=== PATIENT | male | born 1980 | race African-American/Black ===

== ENCOUNTER 2017-02-24 03:00 | Emergency (ER) | payer OTHER ==
[~2017-02-24] VITALS: Ht 172.7 cm; Wt 68.2 kg
[~2017-02-24 03:00] MED LIST: NAPR-576 PO; ROBA750T3 PO
[2017-02-24 03:12] VITALS: BP 120/62; PULSE 91; RESP 16; TEMP 98.1; O2SAT 95
--- NOTE | 2017-02-24 03:36 | PD ---
HPI Chief Complaint: Psychiatric Symptoms Time Seen by Provider: 03:36 Travel History International Travel<30 days: No Contact w/Intl Traveler<30days: No Traveled to known affect area: No History of Present Illness HPI 36-year-old male was brought in under Mtz act for delirious and delusional behavior. He had a machete in his hand in front of his house swinging around saying he would kill people. There is possible history of substance abuse. He was extremely combative en route by paramedics. When I went to see him he was fast asleep and in restraints. He is not in a situation to give any meaningful history at this point. Vital signs are otherwise stable. [facility] Past Medical History Narrative Medical List of his past medical, surgical, social and family history reviewed from the nursing note. Diminished Hearing: No Social History Alcohol Use: Yes (ETOH ABUSE ) Tobacco Use: Yes (1 PPD) Substance Use: Yes (THC ) Allergies-Medications (Allergen,Severity, Reaction): Coded Allergies: No Known Allergies (Unverified , 04/19/16) Comments No known drug allergies. Reported Meds & Prescriptions Reported Meds & Active Scripts Active Active Prescriptions or Reported Medications Unobtainable Narrative Medication List of his home medications reviewed from the nursing note. Review of Systems Except as stated in HPI: all other systems reviewed are Neg Physical Exam Narrative GENERAL: Fast asleep, maintaining his respirations, restrained, disheveled SKIN: Focused skin assessment warm/dry. HEAD: Atraumatic. Normocephalic. EYES: Pupils equal and round. No scleral icterus. No injection or drainage. ENT: No nasal bleeding or discharge. Mucous membranes pink and moist. NECK: Trachea midline. No JVD. CARDIOVASCULAR: Regular rate and rhythm. No murmur appreciated. RESPIRATORY: No accessory muscle use. Clear to auscultation. Breath sounds equal bilaterally. GASTROINTESTINAL: Abdomen soft, non-tender, nondistended. Hepatic and splenic margins not palpable. MUSCULOSKELETAL: No obvious deformities. No clubbing. No cyanosis. No edema. NEUROLOGICAL: Fast asleep. No obvious cranial nerve deficits. Motor grossly within normal limits. Normal speech. PSYCHIATRIC: Appropriate mood and affect; insight and judgment normal. Data Data Last Documented VS Vital Signs Date Time Temp Pulse Resp B/P Pulse Ox O2 Delivery O2 Flow Rate FiO2 02/24/17 11:35 98.5 74 18 123/80 97 Room Air Orders Complete Blood Count With Diff (02/24/17 04:36) Comprehensive Metabolic Panel (02/24/17 04:36) Psych Screen (02/24/17 04:36) Drug Screen, Random Urine (02/24/17 04:36) Alcohol (Ethanol) (02/24/17 04:36) ^ Straight Catheter (02/24/17 05:23) Diet Regular Basic (02/24/17 Lunch) Diet Regular Basic (02/24/17 Dinner) Labs Laboratory Tests Test 02/24/17 04:55 White Blood Count 11.7 TH/MM3 Red Blood Count 5.07 MIL/MM3 Hemoglobin 14.9 GM/DL Hematocrit 44.6 % Mean Corpuscular Volume 87.9 FL Mean Corpuscular Hemoglobin 29.5 PG Mean Corpuscular Hemoglobin 33.5 % Concent Red Cell Distribution Width 12.6 % Platelet Count 264 TH/MM3 Mean Platelet Volume 8.5 FL Neutrophils (%) (Auto) 51.5 % Lymphocytes (%) (Auto) 35.7 % Monocytes (%) (Auto) 8.5 % Eosinophils (%) (Auto) 3.8 % Basophils (%) (Auto) 0.5 % Neutrophils # (Auto) 6.0 TH/MM3 Lymphocytes # (Auto) 4.2 TH/MM3 Monocytes # (Auto) 1.0 TH/MM3 Eosinophils # (Auto) 0.4 TH/MM3 Basophils # (Auto) 0.1 TH/MM3 CBC Comment DIFF FINAL Differential Comment Sodium Level 143 MEQ/L Potassium Level 4.6 MEQ/L Chloride Level 109 MEQ/L Carbon Dioxide Level 27.9 MEQ/L Anion Gap 6 MEQ/L Blood Urea Nitrogen 11 MG/DL Creatinine 1.01 MG/DL Estimat Glomerular Filtration 101 ML/MIN Rate Random Glucose 73 MG/DL Calcium Level 9.2 MG/DL Total Bilirubin 0.2 MG/DL Aspartate Amino Transf 29 U/L (AST/SGOT) Alanine Aminotransferase 26 U/L (ALT/SGPT) Alkaline Phosphatase 74 U/L Total Protein 8.3 GM/DL Albumin 4.4 GM/DL Urine Opiates Screen NEG Urine Barbiturates Screen NEG Urine Amphetamines Screen NEG Urine Benzodiazepines Screen NEG Urine Cocaine Screen NEG Urine Cannabinoids Screen NEG Ethyl Alcohol Level 226 MG/DL MDM Medical Decision Making Medical Screen Exam Complete: Yes Emergency Medical Condition: Yes Medical Record Reviewed: Yes Differential Diagnosis Substance abuse, substance-induced delirium, electrolyte abnormality Narrative Course 5:41 AM awaiting for the blood test result for medical clearance. Eventually patient will require psych screen. 6 AM blood test results are back. Alcohol level is elevated. However I have medically cleared him. He will require psych screening once sober. Procedures EKG Prior to Arrival: No Scripts Unable to Obtain Active Prescriptions or Reported Meds Kellie Romero MD February 24, 2017 03:36
[2017-02-24 05:32] LABS: BASOPHIL # 0.1 TH/MM3 (0-0.2); BASOPHIL % 0.5 % (0.0-2.0); EOSINOPHIL # 0.4 TH/MM3 (0-0.4); EOSINOPHIL % 3.8 % (0.0-4.0); HEMATOCRIT 44.6 % (39.0-51.0); HEMO FLAGS DIFF FINAL; LYMPH % 35.7 % (9.0-44.0); LYMPHOCYTE # 4.2 TH/MM3 (1.0-4.8); MEAN CELL VOLUME 87.9 FL (80.0-100.0); MEAN CORPUSCULAR HEMOGLOBIN 29.5 PG (27.0-34.0); MEAN CORPUSCULAR HGB CONC 33.5 % (32.0-36.0); MONO % 8.5 % (0.0-8.0); NEUT % 51.5 % (16.0-70.0); PLATELET COUNT 264 TH/MM3 (150-450); RED BLOOD COUNT 5.07 MIL/MM3 (4.50-5.90); RED CELL DISTRIBUTION WIDTH 12.6 % (11.6-17.2); WHITE BLOOD COUNT 11.7 TH/MM3 (4.0-11.0)
[2017-02-24 05:51] LABS: ALT (GPT) 26 U/L (12-78); AMPHETAMINE, URINE NEG (NEG); ANION GAP 6 MEQ/L (5-15); AST (GOT) 29 U/L (15-37); BARBITURATES, URINE NEG (NEG); BICARBONATE 27.9 MEQ/L (21.0-32.0); BLOOD UREA NITROGEN 11 MG/DL (7-18); CHLORIDE 109 MEQ/L (98-107); COCAINE, URINE NEG (NEG); GLOMERULAR FILTRATION RATE 101 ML/MIN (>89); POTASSIUM 4.6 MEQ/L (3.5-5.1); SODIUM (NA) 143 MEQ/L (136-145)
[2017-02-24 05:52] LABS: ALKALINE PHOSPHATASE 74 U/L (45-117); TOTAL BILIRUBIN ADULT 0.2 MG/DL (0.2-1.0)
[2017-02-24 06:24] VITALS: BP 106/57; PULSE 86; RESP 14; O2SAT 96
[2017-02-24 11:35] VITALS: BP 123/80; PULSE 74; RESP 18; TEMP 98.5; O2SAT 97
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
== END 2017-02-24 17:00 | disposition home or self-care (01) ==
LOC: NEPE 03:00 → NEPJ 17:00
DX: F10.10 Alcohol abuse, uncomplicated (principal); F17.200 Nicotine dependence, unspecified, uncomplicated
CPT/HCPCS: 80053; 80307; 85025; 99284

== ENCOUNTER 2017-03-08 18:53 | Emergency (ER) | payer SELFPAY ==
[2017-03-08 18:54] VITALS: BP 130/82; PULSE 95; RESP 20; TEMP 98.9; O2SAT 97
--- NOTE | 2017-03-08 18:55 | PD ---
Physical Exam Date Seen by Provider: Mar 08, 2017 Time Seen by Provider: 19:20 Data Data Last Documented VS Vital Signs Date Time Temp Pulse Resp B/P Pulse Ox O2 Delivery O2 Flow Rate FiO2 03/08/17 18:54 98.9 95 20 130/82 97 Room Air MDM Supervised Visit with PRINCESS: No Narrative Course 36 YO M with complaint of "bugbite" Vitals reviewed. Awaiting bed placement. Scripts Unable to Obtain Active Prescriptions or Reported Meds Aileen Bell Mar 08, 2017 18:55 Aileen Bell Mar 08, 2017 18:55
== END 2017-03-08 21:17 | disposition left against medical advice (07) ==
LOC: NED 18:53
DX: T14.8 Other injury of unspecified body region (principal); W57.XXXA Bitten or stung by nonvenomous insect and other nonvenomous arthropods, initial encounter
CPT/HCPCS: 99281